=== PATIENT | male | born 1955 | race African-American/Black ===

== ENCOUNTER 2017-07-12 16:57 | Emergency (ER) | payer OTHER ==
[~2017-07-12] VITALS: Ht 167.6 cm; Wt 75.0 kg
[~2017-07-12 16:57] MED LIST: 1-ME1LIQ OR; ASPI325T PO; CALC0.25 PO; CINA30 PO; CITA20TA4 PO; CLON.1 PO; DOXA1 PO; FERR324T4 PO; HYDR25TA35 PO; LATA0.00 OP; NRSS SQ; PROT40TA PO; REME15TA PO; SEVEL800 PO
[2017-07-12 17:01] VITALS: BP 181/113; PULSE 18; PULSE 82; RESP 18; TEMP 98.4; O2SAT 98
[2017-07-12 17:02] VITALS: BP 180/90
[2017-07-12 17:57] LABS: AUTOMATED NEUTROPHIL # 4.9 TH/MM3 (1.8-7.7); BASOPHIL % 0.6 % (0.0-2.0); EOSINOPHIL # 0.2 TH/MM3 (0-0.4); EOSINOPHIL % 2.5 % (0.0-4.0); HEMATOCRIT 32.2 % (39.0-51.0); HEMOGLOBIN 10.8 GM/DL (13.0-17.0); LYMPH % 17.7 % (9.0-44.0); LYMPHOCYTE # 1.2 TH/MM3 (1.0-4.8); MEAN CELL VOLUME 83.7 FL (80.0-100.0); MEAN CORPUSCULAR HGB CONC 33.4 % (32.0-36.0); MEAN PLATELET VOLUME 7.3 FL (7.0-11.0); MONO % 9.1 % (0.0-8.0); MONOCYTE # 0.6 TH/MM3 (0-0.9); NEUT % 70.1 % (16.0-70.0); PLATELET COUNT 260 TH/MM3 (150-450); RED BLOOD COUNT 3.85 MIL/MM3 (4.50-5.90); RED CELL DISTRIBUTION WIDTH 20.6 % (11.6-17.2); WHITE BLOOD COUNT 7.1 TH/MM3 (4.0-11.0)
[2017-07-12 18:16] LABS: ALBUMIN 3.4 GM/DL (3.4-5.0); AST (GOT) 16 U/L (15-37); BICARBONATE 26.1 MEQ/L (21.0-32.0); BLOOD UREA NITROGEN 26 MG/DL (7-18); CALCIUM 9.5 MG/DL (8.5-10.1); CHLORIDE 96 MEQ/L (98-107); CREATININE 6.64 MG/DL (0.60-1.30); GLOMERULAR FILTRATION RATE 10 ML/MIN (>89); GLUCOSE,RANDOM 91 MG/DL (74-106); SODIUM (NA) 135 MEQ/L (136-145)
[2017-07-12 18:19] LABS: ALKALINE PHOSPHATASE 458 U/L (45-117); ALT (GPT) 13 U/L (12-78); TOTAL BILIRUBIN ADULT 0.5 MG/DL (0.2-1.0); TOTAL PROTEIN 8.1 GM/DL (6.4-8.2)
--- NOTE | 2017-07-12 19:35 | PD ---
HPI Chief Complaint: Psychiatric Symptoms Time Seen by Provider: 19:27 Travel History International Travel<30 days: No Contact w/Intl Traveler<30days: No Traveled to known affect area: No History of Present Illness HPI 62-year-old male with ESRD on HD (MWF), sent here from dialysis center for evaluation of depression. The patient reports that he received his full dialysis today, and afterwards he mentioned he was feeling depressed, so he was sent here by their case management for evaluation. The patient currently is denying feeling depressed. He denies suicidal or homicidal ideation. He states he ran out of his antidepressant that is prescribed to him by the [facility] about a week ago. He does not know the name of this medication. He denies any physical complaints. PFSH Past Medical History Arthritis: Yes Asthma: No Autoimmune Disease: No Anxiety: No Depression: Yes Heart Rhythm Problems: No (DENIES) Cancer: No Cardiac Catheterization: No Cardiovascular Problems: Yes High Cholesterol: Yes Chest Pain: No Congestive Heart Failure: Yes COPD: No Diabetes: Yes Diminished Hearing: No Endocrine: Yes Genitourinary: Yes Hypertension: Yes Immune Disorder: No Kidney Stones: No Musculoskeletal: Yes Neurologic: No Psychiatric: Yes Reproductive: No Respiratory: Yes Renal Failure: Yes (CURRENTLY ON HEMODIALYSIS) Sleep Apnea: No Thyroid Disease: No Past Surgical History Abdominal Surgery: No AICD: No Arteriovenous Shunt: No Body Medical Devices: RUC PERMACATH Cardiac Surgery: No Coronary Artery Bypass Graft: No Ear Surgery: No Endocrine Surgery: No Eye Surgery: No Genitourinary Surgery: No Insulin Pump: No Joint Replacement: No Oral Surgery: No Pacemaker: No Thoracic Surgery: No Other Surgery: No Social History Alcohol Use: No (HX OF ETOH ABUSE PER PT; NO CURRENT USE) Tobacco Use: Yes (09/12 PPD) Substance Use: Yes ([facility]OC[facility]SE [facility]) Allergies-Medications (Allergen,Severity, Reaction): Coded Allergies: No Known Allergies (Verified , 09/29/15) Reported Meds & Prescriptions Reported Meds & Active Scripts Active Protonix (Pantoprazole Sodium) 40 Mg Tab 40 Mg PO DAILY 30 Days Renvela (Sevelamer Carbonate) 800 Mg Tab 1,600 Mg PO TIDAC 30 Days Novolin Regular Insulin Supplemental Scale (Insulin Human Regular) U 100 Inj 1 Injection SQ BIDAC 30 Days Sensipar 30 mg (Cinacalcet) 30 Mg Tab 30 Mg PO DAILY 30 Days Catapres (Clonidine HCl) 0.1 Mg Tab 0.1 Mg PO TID 30 Days Ferrous Sulfate 325 Mg Tab 325 Mg PO BID 30 Days Doxazosin Mesylate 1 Mg Tab 1 Mg PO HS 30 Days Catapres 0.2 mg (Clonidine HCl) 0.2 Mg Tab 0.2 Mg PO TID 30 Days Reported Calcitriol 0.25 Mcg Cap 0.25 Mcg PO MON,WED,FRI Aspirin 325 mg (Aspirin) 325 Mg Tab 325 Mg PO DAILY Remeron 15 mg (Mirtazapine) 15 Mg Tab 15 Tab PO HS Citalopram Hydrobromide 20 Mg Tab 20 Mg PO DAILY Latanoprost 0.005 % Maeve 0.005 % OP DAILY Apresoline (Hydralazine HCl) 25 Mg Tab 100 Mg PO TID Amlodipine Besylate 10 mg (Amlodipine Besylate) 10 Mg Tab 10 Mg OR DAILY Review of Systems Except as stated in HPI: all other systems reviewed are Neg Physical Exam Narrative GENERAL: Pleasant, well-developed, well-nourished, comfortable, no apparent distress. SKIN: Focused skin assessment warm/dry. HEAD: Atraumatic. Normocephalic. EYES: Pupils equal and round. No scleral icterus. No injection or drainage. ENT: Mucous membranes pink and moist. NECK: Trachea midline. No JVD. CARDIOVASCULAR: Regular rate and rhythm. Right upper extremity dialysis graft with thrill. RESPIRATORY: No accessory muscle use. Clear to auscultation. Breath sounds equal bilaterally. MUSCULOSKELETAL: No obvious deformities. No clubbing. No cyanosis. No edema. NEUROLOGICAL: Awake and alert. No obvious cranial nerve deficits. Motor grossly within normal limits. Normal speech. PSYCHIATRIC: Appropriate mood and affect; insight and judgment normal. Data Data Last Documented VS Vital Signs Date Time Temp Pulse Resp B/P (MAP) Pulse Ox O2 Delivery O2 Flow Rate FiO2 07/12/17 17:02 180/90 (120) 07/12/17 17:01 98.4 82 18 98 Orders Orders Complete Blood Count With Diff (07/12/17 17:07) Comprehensive Metabolic Panel (07/12/17 17:07) Psych Screen (07/12/17 17:07) Labs Laboratory Tests Test 07/12/17 17:35 White Blood Count 7.1 TH/MM3 Red Blood Count 3.85 MIL/MM3 Hemoglobin 10.8 GM/DL Hematocrit 32.2 % Mean Corpuscular Volume 83.7 FL Mean Corpuscular Hemoglobin 28.0 PG Mean Corpuscular Hemoglobin Concent 33.4 % Red Cell Distribution Width 20.6 % Platelet Count 260 TH/MM3 Mean Platelet Volume 7.3 FL Neutrophils (%) (Auto) 70.1 % Lymphocytes (%) (Auto) 17.7 % Monocytes (%) (Auto) 9.1 % Eosinophils (%) (Auto) 2.5 % Basophils (%) (Auto) 0.6 % Neutrophils # (Auto) 4.9 TH/MM3 Lymphocytes # (Auto) 1.2 TH/MM3 Monocytes # (Auto) 0.6 TH/MM3 Eosinophils # (Auto) 0.2 TH/MM3 Basophils # (Auto) 0.0 TH/MM3 CBC Comment AUTO DIFF Differential Comment AUTO DIFF CONFIRMED Blood Urea Nitrogen 26 MG/DL Creatinine 6.64 MG/DL Random Glucose 91 MG/DL Total Protein 8.1 GM/DL Albumin 3.4 GM/DL Calcium Level 9.5 MG/DL Alkaline Phosphatase 458 U/L Aspartate Amino Transf (AST/SGOT) 16 U/L Alanine Aminotransferase (ALT/SGPT) 13 U/L Total Bilirubin 0.5 MG/DL Sodium Level 135 MEQ/L Potassium Level 4.1 MEQ/L Chloride Level 96 MEQ/L Carbon Dioxide Level 26.1 MEQ/L Anion Gap 13 MEQ/L Estimat Glomerular Filtration Rate 10 ML/MIN MDM Medical Decision Making Medical Screen Exam Complete: Yes Emergency Medical Condition: Yes Medical Record Reviewed: Yes Differential Diagnosis Depression Narrative Course Initial vital signs showed a blood pressure of 181/113 which improved to 180/90 without any intervention, pulse ox 98% on room air, heart rate 82, oral temp of 98.4F. CBC: WBC 7.1, hemoglobin 10.8, hematocrit 32.2, platelets 260. CMP is remarkable for BUN 26, creatinine 6.64, GFR 10. Patient is overall very well-appearing. He is not displaying any signs or symptoms of hypertensive crisis. He denies suicidal or homicidal ideation. He states he would like to go home and [facility]. At this point I believe he is stable for discharge home with outpatient follow-up. He was informed on when to return to the emergency department. He verbalizes understanding and agreement with plan. Diagnosis Primary Impression: Depression Referrals: Primary Care Physician 3 days Additional Instructions: [facility] Return to the emergency department for worsening symptoms or any other concerns as discussed. Disposition: 01 DISCHARGE HOME Condition: Johnathon Ferraro MD Jul 12, 2017 19:35
== END 2017-07-12 20:04 | disposition home or self-care (01) ==
LOC: NEPD 16:57
DX: F32.9 Major depressive disorder, single episode, unspecified (principal); N18.6 End stage renal disease; E11.9 Type 2 diabetes mellitus without complications; I10 Essential (primary) hypertension; Z99.2 Dependence on renal dialysis; Z72.0 Tobacco use
CPT/HCPCS: 80053; 85025; 99283